=== PATIENT | female | born 1995 | race Caucasian/White ===

== ENCOUNTER 2021-04-17 16:41 | Emergency (ER) | payer BC, MEDICAID, SELFPAY ==
--- NOTE | 2021-04-17 17:05 | ECG_ITS ---
Test Reason : CHEST/BACK PAIN Blood Pressure : / mmHG Vent. Rate : 083 BPM Atrial Rate : 083 BPM P-R Int : 134 ms QRS Dur : 082 ms QT Int : 384 ms P-R-T Axes : 042 071 048 degrees QTc Int : 451 ms Normal sinus rhythm Normal ECG No previous ECGs available Referred By: Jessica Briones Electronically Signed By:Hugo Abreu
[2021-04-17 17:49] VITALS: BP 138/84; PULSE 75; RESP 20; TEMP 36.6; O2SAT 100; BMI 27.4
[2021-04-17 17:51] LABS: Basophils Percent Auto 0.4 % (0-2); Eosinophils Absolute Auto 0.1 X10*3/uL (0.0-0.4); Eosinophils Percent Auto 1.3 % (0-4); Hemoglobin 13.9 g/dl (12.0-16.0); Imm Gran Abs Auto 0.03 X10*3/uL (0.00-0.03); Imm Gran Pct Auto 0.4 % (0.0-0.4); Lymphocytes Absolute Auto 1.8 X10*3/uL (1.2-4.9); Lymphocytes Percent Auto 26.8 % (20-40); MANUAL DIFF FLAG NO; Mean Corpuscular HGB Conc 34.8 g/dl (31.0-35.0); Mean Corpuscular Hemoglobin 31.5 pg (27.0-33.0); Mean Corpuscular Volume 90.7 fL (80.0-98.0); Mean Platelet Volume 10.8 fL (9.4-12.3); Monocytes Absolute Auto 0.5 X10*3/uL (0.1-1.2); Monocytes Percent Auto 6.6 % (2-11); Neutrophils Absolute Auto 4.4 x10*3/uL (2.0-8.3); Neutrophils Percent Auto 64.5 % (45-73); Platelet Count 285 X10*3/uL (160-400); Red Blood Count 4.41 X10*6/uL (4.20-5.50); Red Cell Distribution Width 12.7 % (11.0-16.0); White Blood Count 6.8 X10*3/uL (4.8-10.8)
[2021-04-17 17:52] LABS: Appearance Urine CLEAR; Color Urine YELLOW; Glucose Urine UA NEG (NEG); Leukocyte Esterase Urine NEG (NEG); Nitrite Urine NEG (NEG); Urine Blood NEG (NEG); Urine Ketones NEG (NEG); Urine Protein NEG (NEG-TRACE)
[2021-04-17 17:58] LABS: Prothrombin Time 11.6 SEC (9.9-13.0)
[2021-04-17 18:05] LABS: Alanine Aminotransferase 22 U/L (0-31); Albumin Level 4.4 g/dL (3.5-5.0); Alkaline Phosphatase 41 U/L (39-117); Anion Gap 14 (12-20); Aspartate Amino Transferase 16 U/L (5-31); Bilirubin Total 0.7 mg/dL (0.0-1.0); Blood Urea Nitrogen 10 mg/dL (9-16); Calcium 9.9 mg/dL (8.4-10.2); Carbon Dioxide 23 mmol/L (22-29); Chloride 109 mmol/L (96-108); Creatinine Clr Calc Pharmacy 135.7; Estimated Glomerular Filt Rate > 60; Glucose Random 92 mg/dL (60-115); Potassium 3.6 mmol/L (3.3-5.1); Sodium 142 mmol/L (135-145); Total Protein 7.3 g/dL (6.5-8.0)
[2021-04-17 18:10] LABS: B Type Natriuretic Peptide 25 pg/mL (<100); Troponin-I High Sensitivity < 3.5 ng/L (<3.5-17.0)
[2021-04-17 18:11] LABS: HCG Quantitative < 2 mIU/mL
[2021-04-17 18:34] LABS: Influenza A PCR NEGATIVE (Negative); Influenza B PCR NEGATIVE (Negative); Resp Syncy Virus RNA Qual PCR NEGATIVE (Negative); SARS COV2 PCR INHOUSE NEGATIVE (Negative)
--- NOTE | 2021-04-17 22:08 | ED.CHESTPAIN ---
HPI - Chest Pain General Chief Complaint: Upper Respiratory Symptoms Stated Complaint: Right sided chest pain Time Seen by Provider: 04/17/21 17:04 History of Present Illness HPI narrative: Patient is a 25-year-old female presents today with chest pain been ongoing Over the right shoulder right chest area worse with movement. Worse with deep breath. worse with movement. No fever no chills. No cough no congestion. No leg swelling. No history of blood clots. No history of lupus. Patient is on control no history of diabetes, hypertension, high cholesterol, smoking, mi. patient with Urgent Care had a chest x-ray done grossly negative for any acute evidence of pneumonia pneumothorax. No fever no chills. Immunized for COVID. No recent travel. MD complaint: chest pain Related Data Previous Rx's Medication Instructions Recorded ibuprofen 400 mg tablet 400 mg PO Q6H PRN #20 tab 04/17/21 Allergies Allergy/AdvReac Type Severity Reaction Status Date / Time No Known Allergies Allergy Verified 04/17/21 17:05 Review of Systems Review of Systems: Positive [facility] Social History Social History Advance Directives: No Advance Directives Information Provided: No Physical Exam Vital Signs: Vital Signs: Last Vital Signs Temp 97.8 F 04/17/21 17:49 Pulse 75 04/17/21 17:49 Resp 20 04/17/21 17:49 BP 138/84 04/17/21 17:49 Pulse Ox 100 04/17/21 17:49 BMI result Body Mass Index 27.4 MDM - Chest Pain MDM Narrative Medical decision making narrative: Patient's chest pain atypical in nature For ACS. Cardiac enzyme negative. No significant cardiac risk. Patient's D-dimer is negative. Only risk factor for PE as patient is on control. Unlikely patient has pulmonary emboli. Chest x-ray showed no focal infiltrate. No pneumothorax. Will discharge patient home. In stable condition. Patient's EKG showed a sinus pattern heart rate was 80 TN QRS QT within normal limits as no acute ST segment elevation noted. Medical Records Data Attestation: I reviewed the patient's medical records. Lab Data Attestation: I reviewed the patient's lab results. Result diagrams: 04/17/21 17:40 04/17/21 17:40 Labs: Lab Results 04/17/21 04/17/21 04/17/21 Range/Units 17:40 17:40 17:40 WBC 6.8 (4.8-10.8) X10*3/uL RBC 4.41 (4.20-5.50) X10*6/uL Hgb 13.9 (12.0-16.0) g/dl Hct 40.0 (37.0-47.0) % MCV 90.7 (80.0-98.0) fL MCH 31.5 (27.0-33.0) pg MCHC 34.8 (31.0-35.0) g/dl RDW 12.7 (11.0-16.0) % Plt Count 285 (160-400) X10*3/uL MPV 10.8 (9.4-12.3) fL Immature Gran % (Auto) 0.4 (0.0-0.4) % Neut % (Auto) 64.5 (45-73) % Lymph % (Auto) 26.8 (20-40) % [place] % (Auto) 6.6 (2-11) % Eos % (Auto) 1.3 (0-4) % Baso % (Auto) 0.4 (0-2) % Lymph # (Auto) 1.8 (1.2-4.9) X10*3/uL [place] # (Auto) 0.5 (0.1-1.2) X10*3/uL Eos # (Auto) 0.1 (0.0-0.4) X10*3/uL Baso # (Auto) 0.0 (0.0-0.2) X10*3/uL Abs Immat Gran (auto) 0.03 (0.00-0.03) X10*3/uL Absolute Neuts (auto) 4.4 (2.0-8.3) x10*3/uL Absolute Nucleated RBC 0.000 (0.0-0.012) X10*3/uL Nucleated RBC % (auto) 0.0 (0.0-0.2) /100WBC PT 11.6 (9.9-13.0) SEC INR 1.0 (0.9-1.1) D-Dimer High Sensitivty < 150 NG/ML Sodium 142 (135-145) mmol/L Potassium 3.6 (3.3-5.1) mmol/L Chloride 109 H (96-108) mmol/L Carbon Dioxide 23 (22-29) mmol/L Anion Gap 14 (12-20) BUN 10 (9-16) mg/dL Creatinine 0.67 (0.5-1.4) mg/dL Estim Creat Clear Calc 135.7 Estimated GFR > 60 Random Glucose 92 (60-115) mg/dL Calcium 9.9 (8.4-10.2) mg/dL Magnesium 2.0 (1.6-2.6) mg/dL Total Bilirubin 0.7 (0.0-1.0) mg/dL AST 16 (5-31) U/L ALT 22 (0-31) U/L Alkaline Phosphatase 41 (39-117) U/L Troponin I High Sens (<3.5-17.0) ng/L B-Natriuretic Peptide (<100) pg/mL Total Protein 7.3 (6.5-8.0) g/dL Albumin 4.4 (3.5-5.0) g/dL Beta HCG, Quant < 2 mIU/mL Urine Color Urine Appearance Urine pH (5.0-8.0) Ur Specific [place] (1.005-1.025) Urine Protein (NEG-TRACE) MG/DL Urine Glucose (UA) (NEG) MG/DL Urine Ketones (NEG) MG/DL Urine Blood (NEG) Urine Nitrite (NEG) Ur Leukocyte Esterase (NEG) Influenza Type A (PCR) (Negative) Influenza Type B (PCR) (Negative) RSV RNA Qual (PCR) (Negative) SARS-CoV-2 RNA (RT-PCR) (Negative) 04/17/21 04/17/21 04/17/21 Range/Units 17:40 17:40 17:42 WBC (4.8-10.8) X10*3/uL RBC (4.20-5.50) X10*6/uL Hgb (12.0-16.0) g/dl Hct (37.0-47.0) % MCV (80.0-98.0) fL MCH (27.0-33.0) pg MCHC (31.0-35.0) g/dl RDW (11.0-16.0) % Plt Count (160-400) X10*3/uL MPV (9.4-12.3) fL Immature Gran % (Auto) (0.0-0.4) % Neut % (Auto) (45-73) % Lymph % (Auto) (20-40) % [place] % (Auto) (2-11) % Eos % (Auto) (0-4) % Baso % (Auto) (0-2) % Lymph # (Auto) (1.2-4.9) X10*3/uL [place] # (Auto) (0.1-1.2) X10*3/uL Eos # (Auto) (0.0-0.4) X10*3/uL Baso # (Auto) (0.0-0.2) X10*3/uL Abs Immat Gran (auto) (0.00-0.03) X10*3/uL Absolute Neuts (auto) (2.0-8.3) x10*3/uL Absolute Nucleated RBC (0.0-0.012) X10*3/uL Nucleated RBC % (auto) (0.0-0.2) /100WBC PT (9.9-13.0) SEC INR (0.9-1.1) D-Dimer High Sensitivty NG/ML Sodium (135-145) mmol/L Potassium (3.3-5.1) mmol/L Chloride (96-108) mmol/L Carbon Dioxide (22-29) mmol/L Anion Gap (12-20) BUN (9-16) mg/dL Creatinine (0.5-1.4) mg/dL Estim Creat Clear Calc Estimated GFR Random Glucose (60-115) mg/dL Calcium (8.4-10.2) mg/dL Magnesium (1.6-2.6) mg/dL Total Bilirubin (0.0-1.0) mg/dL AST (5-31) U/L ALT (0-31) U/L Alkaline Phosphatase (39-117) U/L Troponin I High Sens < 3.5 (<3.5-17.0) ng/L B-Natriuretic Peptide 25 (<100) pg/mL Total Protein (6.5-8.0) g/dL Albumin (3.5-5.0) g/dL Beta HCG, Quant mIU/mL Urine Color YELLOW Urine Appearance CLEAR Urine pH 6.0 (5.0-8.0) Ur Specific [place] 1.010 (1.005-1.025) Urine Protein NEG (NEG-TRACE) MG/DL Urine Glucose (UA) NEG (NEG) MG/DL Urine Ketones NEG (NEG) MG/DL Urine Blood NEG (NEG) Urine Nitrite NEG (NEG) Ur Leukocyte Esterase NEG (NEG) Influenza Type A (PCR) NEGATIVE (Negative) Influenza Type B (PCR) NEGATIVE (Negative) RSV RNA Qual (PCR) NEGATIVE (Negative) SARS-CoV-2 RNA (RT-PCR) NEGATIVE (Negative) Discharge Plan Discharge Clinical Impression: Chest pain Patient Disposition: Home, Self-Care Instructions: Chest Pain (ED), Chest Wall Pain (ED) Prescriptions: New ibuprofen 400 mg tablet 400 mg PO Q6H PRN (Reason: pain) Qty: 20 RF: 0 Referrals: Physician,Unknown J [Primary Care Provider] - 2 days
[2021-04-17 22:28] LABS: D Dimer High Sensitivity < 150 NG/ML
== END 2021-04-17 23:07 | disposition home or self-care (01) ==
PROVIDERS: Nurse Practitioner Family; Physician Assistant Medical; Emergency Provider Emergency Medicine Emergency Medical Services
DX: R07.9 Chest pain, unspecified (principal); Z20.822 Contact with and (suspected) exposure to COVID-19
CPT/HCPCS: 0241U; 36415; 80053; 81003; 83735; 83880; 84484; 84702; 85025; 85379; 85610; 93005; 99283

== ENCOUNTER 2025-01-14 10:45 | Outpatient (REF) | payer OTHER, SELFPAY ==
--- NOTE | ~2025-01-14 | US_ITS ---
EXAMINATION: US DIAGNOSTIC ULTRASOUND BREAST, BILATERAL CLINICAL INFORMATION: Streaky of bilateral biopsy-proven fibroadenomas. Multiple circumscribed oval masses bilaterally. Left breast palpable painful lump which patient noticed cyst without in the outer breast. Family history of breast cancer including paternal grandmother.. Follow up requested for right breast and o'clock 6 cm from the nipple and left breast 3:00 6 cm from the nipple. COMPARISON: Comparison is made with relevant prior outside imaging. TECHNIQUE: Ultrasound of the breast is performed with real-time martinez scale imaging and color Doppler. FINDINGS: Left: Targeted color Doppler ultrasound scanning in the left breast area of patient's painful palpable lump at 3:00 6 cm from the nipple demonstrates a hypoechoic oval circumscribed solid mass measuring 13 x 10 x 7 mm slightly increased from prior August 2024 previously measured 9 x 6 x 10 mm. Right: Targeted color Doppler ultrasound scanning in the right breast 10:00 6 cm from the nipple demonstrates a new hypoechoic oval circumscribed solid mass measuring 17 x 9 x 14 mm which is circumscribed oval parallel with morphology of a probable fibroadenoma. Again seen at 10:00 6 cm from the nipple is a hypoechoic oval circumstance solid mass measuring 10 x 9 x 5 mm which is similar to slightly decreased in size from prior ultrasound August 2024. Results are discussed with the patient at time of visit. US/US breast BI limited mamm only IMPRESSION: Left: Palpable painful lump correlating with a hypoechoic oval circumscribed solid mass at 3:00 6 cm from the nipple measuring 13 x 10 x 7 mm which is slightly increased in size from August 2024. Recommend histology at this time with ultrasound-guided core needle biopsy for confirmation. The findings and recommendations were discussed with the patient the procedure will be scheduled. The patient would like a breast surgical consultation to consider excision. Breast surgical consultation is recommended at this time. Right: Newly seen hypoechoic oval circumscribed solid mass at 10:00 6 cm from the nipple measuring up to 17 mm. Recommend 6 month follow-up for further evaluation of stability. Hypoechoic oval circumscribed solid mass at 10:00 6 cm from the nipple slightly decreased in size comparison to August 2024. Assessment of this mass can be performed at 6 month follow-up. ASSESSMENT: BI-RADS 4: Suspicious RECOMMENDATION: Recommend left breast ultrasound-guided core needle biopsy at this time for the palpable painful mass on ultrasound 3:00 6 cm from the nipple. Recommend breast surgical consultation 6 month follow-up right breast ultrasound. Electronically signed by: Sarah Hoang DO 01/14/2025 02:05 PM EDT
--- OUTSIDE RECORDS SUMMARY | 2025-01-14 12:20 | XMS_ITS | Patient Health Record ---
Author Organization [facility] Address [address] [place] [address] Care Team Providers Care Lacquerer Name Role Phone WANDY MURRY CNP Primary Care Provider UnavailLELE Leal Unavailable [phone] Reason For Referral No Information Medications Medication SIG (Take, Route, Frequency, Duration) Notes Start Date End Date Status Tri-Sprintec 0.18/0.215/0.25 MG-35 MCG 1 tablet Orally Once a day; Duration: 28 days 01/30/2019 Active metroNIDAZOLE 0.75 % 1 applicatorful at bedtime Vaginal Once a day; Duration: 5 day(s) 10/29/2019 Active Valtrex 500 MG 1 tablet Orally at t he first sign of an outbreak Q 12 hr; Duration: 3 days 10/20/2019 Active Lidocaine 5 % 1 application as nee ded Externally Three times a day prn 10/19/2019 Active Fluconazole 150 MG 1 tablet Orally ever y 3 days; Duration: 3 days 10/29/2019 Active Social History Tobacco Use: Social History Observation Description Date Details (start date - stop date) Never Smoker NA - NA Tobacco Use/Smoking Question Answer Notes Are you a nonsmoker Alcohol Screen (Audit-C) Question Answer Notes Did you have a drink contain ing alcohol in the past year? Yes How often did you have a dri nk containing alcohol in the past year? 2 to 4 times a month (2 points) Points 2 Interpretation Negative Sexual History Question Answer Notes Had sex in the past 12 months (vaginal, oral, or anal)? Yes with Men only Have you ever had a Sexually transmitted disease ? No Tobacco use other than smoking: Question Answer Notes Are you an other tobacco user? No Plan Of Treatment Pending Test Test Name Order Date Urinalysis 10/19/2019 ONE SWAB 10/19/2019 Insurance Providers Payer Name Payer Address Payer Phone Subscriber Number Group Number Insured Name Patient Relationship to Insured Coverage Start Date Coverage End Date [employer] [place] [address] [place] [address] [id number] MARLYS CAMARENA Natural Child - Insured has Financial Responsibility Medical (General) History Surgical History Surgery Date(Month/Year) Hospitalization History Reason Date(Month/Year) miscarriage/Left ovarian cyst 10/23/18
== END 2025-01-14 10:46 | disposition home or self-care (01) ==
LOC: HO.MAMMO 10:45
PROVIDERS: PCP Nurse Practitioner Gerontology; Visit Provider Nurse Practitioner Gerontology
DX: N63.25 Unspecified lump in the left breast, overlapping quadrants (principal); N63.11 Unspecified lump in the right breast, upper outer quadrant
CPT/HCPCS: 76642

== ENCOUNTER → 2025-01-14 11:00 | Outpatient (BNV) | payer OTHER, SELFPAY | PROVIDERS: PCP Nurse Practitioner Gerontology; Visit Provider Internal Medicine | DX: N63.21 Unspecified lump in the left breast, upper outer quadrant (principal); N63.12 Unspecified lump in the right breast, upper inner quadrant | CPT/HCPCS: 76642 ==

== ENCOUNTER 2025-01-20 09:47 | Outpatient (REF) | payer OTHER, SELFPAY ==
--- NOTE | ~2025-01-20 | US_ITS ---
PROCEDURE: ULTRASOUND-GUIDED LEFT BREAST BIOPSY CLINICAL INFORMATION: Left breast mass at 3:00 which is palpable and painful to the patient and patient requests ultrasound-guided core needle biopsy at this time. Patient has a history of benign fibroadenomas biopsied in the past. COMPARISON: Priors on PACS. TECHNIQUE: The details of the procedure, as well as the risks, benefits, and alternatives to the procedure were explained to the patient in detail and all of her questions were answered, after which, written informed consent was obtained. PROCEDURE: Prior to the procedure, sonography revealed solid mass at 3:00 in the left breast. A time-out was performed, the lesion intended for biopsy was targeted and the skin of the left breast was then prepped and draped in the usual sterile fashion. Using sonographic guidance, sterile technique, and 1% lidocaine without epinephrine for local anesthesia, a total of 5 cores were obtained through the targeted area with a 14-gauge biopsy device. At the completion of tissue sampling, a single butterfly metallic clip was deposited at the biopsy site. An appropriate sample was obtained. The patient tolerated the procedure well and, after assuring adequate hemostasis, was discharged in good condition after reviewing postbiopsy breast care instructions. Final pathology results are pending. US/US breast ndl core biopsy LT IMPRESSION: 1. Uncomplicated sonographically-guided core biopsy of the left breast. No postprocedure mammogram was performed as the patient is 29 years old. 2. Final pathology results are pending. A separate report with final recommendations will be issued once these results are made available. Electronically signed by: Sarah Hoang DO 01/20/2025 11:54 AM EDT
[2025-01-20] MEDS: Lidocaine HCl 1 % 20 ML VIAL 9 ML SUBCUT (11:28)
--- OUTSIDE RECORDS SUMMARY | 2025-01-20 11:41 | XMS_ITS | Patient Health Record ---
Author Organization [facility] Address [address] [place] [address] Care Team Providers Care Portainer Operator Name Role Phone WANDY MURRY CNP Primary Care Provider UnavailLELE Leal Unavailable [phone] Reason For Referral No Information Medications Medication [...] End Date [employer] [address] [place] [address] [id number] MARLYS CAMARENA Natural Child - Insured has Financial Responsibility Medical (General) History Surgical History Surgery Date(Month/Year) Hospitalization History Reason Date(Month/Year) miscarriage/Left ovarian cyst 10/23/18
== END 2025-01-20 09:48 | disposition home or self-care (01) ==
LOC: HO.MAMMO 09:47
PROVIDERS: PCP Nurse Practitioner Gerontology; Visit Provider Nurse Practitioner Gerontology
DX: N63.21 Unspecified lump in the left breast, upper outer quadrant (principal)
CPT/HCPCS: 19083; 88305; A4648; J2003

== ENCOUNTER → 2025-01-20 10:00 | Outpatient (BNV) | payer OTHER, SELFPAY | PROVIDERS: PCP Nurse Practitioner Gerontology; Visit Provider Internal Medicine | DX: N63.25 Unspecified lump in the left breast, overlapping quadrants (principal) | CPT/HCPCS: 19083 ==